=== PATIENT | male | born 1990 | race Caucasian/White ===

== ENCOUNTER 2019-06-09 10:51 | Emergency (ER) | payer OTHER ==
[2019-06-09 11:00] VITALS: BP 139/89
--- NOTE | 2019-06-09 11:03 | ED Physician Documentation ---
History of Present Illness - Stated complaint Stated Complaint: GLF - Chief complaint Chief Complaint: Trauma Ext - History obtained from History obtained from: Patient - History of Present Illness Timing: Prior to arrival - Additonal information Additional information: Patient is a previously healthy 28-year-old male presenting with right knee and proximal lower leg discomfort after falling approximately 6 feet from a ladder that slipped. Patient reports that he fell directly onto the ladder. Patient denies striking of head, loss of consciousness, headache, neck pain, back pain, abdominal pain or other complaints. Patient does note that he fell accidentally in the shower last night onto the right leg without significant injury. Patient does report swelling to the proximal lateral right tib-fib area, as well as pain with bearing weight. Patient denies significant decrease in range of motion, sensation, strength otherwise. No other improving or worsening factors noted. Review of Systems Cardiac: denies: Chest pain / pressure Respiratory: denies: Dyspnea GI: denies: Abdominal Pain, Nausea, Vomiting, Diarrhea : denies: Dysuria Skin: denies: Abrasion (s) Musculoskeletal: reports: Extremity pain, Joint pain, Extremity swelling, Pain with weight bearing. denies: Neck pain, Back pain Neurologic: denies: Focal weakness, Numbness PD PAST MEDICAL HISTORY - Past Medical History Past Medical History: No - Past Surgical History Past Surgical History: No - Allergies Allergies/Adverse Reactions: Allergies Allergy/AdvReac Type Severity Reaction Status Date / Time Sulfa (Sulfonamide AdvReac Unknown Verified 06/09/19 10:57 Antibiotics) - Social History Does the pt smoke?: No Smoking Status: Never smoker PD ED PE NORMAL - Vitals Vital signs reviewed: Yes - General General: Alert and oriented X 3, No acute distress, Well developed/nourished - HEENT HEENT: Atraumatic, Moist mucous membranes - Neck Neck: No bony TTP - Cardiac Cardiac: RRR, No murmur, Strong equal pulses - Respiratory Respiratory: No respiratory distress, Clear bilaterally - Abdomen Abdomen: Normal bowel sounds, Soft, Non tender, Non distended - Back Back: No spinal TTP - Derm Derm: Normal color, Warm and dry, Other - Extremities Extremities: No deformity, Other (Appreciable swelling to right lateral proximal calf with overlying tenderness to palpation. No distinctive right knee discomfort, laxity, or decrease in range of motion. Remainder of right lower extremity is otherwise relatively unremarkable.). No: No tenderness to palpate, No edema - Neuro Neuro: Alert and oriented X 3, No motor deficit, No sensory deficit - Psych Psych: Normal mood, Normal affect Results - Vitals Vitals: Vital Signs - 24 hr 06/09/19 10:54 Temperature 36.0 C L Heart Rate 86 Respiratory 19 Rate Blood Pressure 139/89 H O2 Saturation 98 Oxygen O2 Source Room air PD MEDICAL DECISION MAKING - ED course Complexity details: reviewed results, re-evaluated patient, considered differential, d/w patient ED course: Presenting with likely contusion to right lower extremity. Did not find evidence to indicate internal knee injury such as meniscus or ligamentous injury, although considered. Obtained plain films which did not find evidence of dislocation or fracture, but incidental finding of osteochondroma, which was relayed to patient. At this time, do not feel patient requires further work-up or imaging. Discussed supportive cares, return precautions, and appropriate follow-up. Patient voiced understanding and is comfortable with discharge plan. Departure - Departure Disposition: 01 Home, Self Care Clinical Impression: Injury of lower leg Qualifiers: Encounter type: initial encounter Laterality: right Qualified Code(s): S89.91XA - Unspecified injury of right lower leg, initial encounter Condition: Good Instructions: ED Contusion Lower Ext Follow-Up: your,doctor [Other] - Within 3 Days Comments: Recommend supportive cares including elevation, ice application, ibuprofen/Tylenol as needed. Follow-up with primary care physician in next 2 to 3 days and return to ED sooner if expands worsening symptoms or have other concerns.
--- NOTE | 2019-06-09 12:15 | XRAY Report ---
Reason: fall from ladder with pain and swelling Procedure Date: 06/09/2019 Accession Number: [id number] / [id number] Procedure: XR - Tib/Fib RT CPT Code: FULL RESULT: EXAM: RIGHT TIBIA/FIBULA RADIOGRAPHY EXAM DATE: 06/09/2019 12:05 PM. CLINICAL HISTORY: Fall from ladder with pain and swelling. COMPARISON: None. TECHNIQUE: 2 views. FINDINGS: Bones: No acute fracture. There is a proximal medial right tibial exophytic lesion measuring 1.9 cm consistent with an osteochondroma. Joints: The visualized knee and ankle joints are normal. No effusions. Soft Tissues: No radiopaque foreign bodies. IMPRESSION: 1. No acute osseous abnormalities. 2. Proximal right tibial osteochondroma. RADIA
--- NOTE | 2019-06-09 12:15 | XRAY Report ---
Reason: fall from ladder with pain and swelling Procedure Date: 06/09/2019 Accession Number: [id number] / [id number] Procedure: XR - Knee 3 View RT CPT Code: FULL RESULT: EXAM: RIGHT KNEE RADIOGRAPHY EXAM DATE: 06/09/2019 12:04 PM. CLINICAL HISTORY: Fall from ladder with pain and swelling. COMPARISON: None. TECHNIQUE: 3 views. FINDINGS: Bones: No acute fracture. Proximal medial right tibial osteochondroma present measuring 1.9 cm. Joints: Normal alignment. Small right knee effusion. No dislocation. Soft Tissues: No radiopaque foreign bodies. IMPRESSION: 1. No acute osseous abnormalities. Normal alignment. 2. Proximal right tibial osteochondroma. RADIA
== END 2019-06-09 12:52 | disposition home or self-care (01) ==
LOC: ED 10:51
DX: S89.91XA Unspecified injury of right lower leg, initial encounter (principal); W11.XXXA Fall on and from ladder, initial encounter; D16.21 Benign neoplasm of long bones of right lower limb
CPT/HCPCS: 99282; 99284

== ENCOUNTER 2021-03-05 13:44 | Emergency (ER) | payer OTHER ==
[2021-03-05] MEDS ORDERED: PROPARACAINE 0.5% OPHTH DROPS 15 ML LEFTEYE STA (13:52)
[2021-03-05 13:53] VITALS: BP 160/76
--- NOTE | 2021-03-05 14:10 | ED Physician Documentation ---
PD HPI OPHTHO - Stated complaint Stated Complaint: LT EYE PX - Chief complaint Chief Complaint: Heent - History obtained from History obtained from: Patient - Additional information Additional information: Patient comes emergency department chief complaint of feeling like something is in his eye. 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 When he was done, he suddenly noticed that he had a feeling of something being in his eye and quite a bit of irritation. The patient states that he tried to walk using some eyewash that they had on the worksite and that this did not seem to help. He tried some other drops and continued to have increasing burning and stinging in his eye. Patient does not use contact lenses. He does not use any corrective lenses of any kind. He states that he has not been ill with anything recently. He feels the pain around the area of his lower lid. No visual changes. No other complaints at this time. Review of Systems Ten Systems: 10 systems reviewed and negative Constitutional: reports: Reviewed and negative Eyes: reports: Photophobia, Irritation. denies: Decreased vision Ears: reports: Reviewed and negative Nose: reports: Reviewed and negative Throat: reports: Reviewed and negative Cardiac: reports: Reviewed and negative Respiratory: reports: Reviewed and negative GI: reports: Reviewed and negative : reports: Reviewed and negative Skin: reports: Reviewed and negative Musculoskeletal: reports: Reviewed and negative Neurologic: reports: Reviewed and negative Psychiatric: reports: Reviewed and negative Endocrine: reports: Reviewed and negative Immunocompromised: reports: Reviewed and negative PD PAST MEDICAL HISTORY - Past Medical History Past Medical History: No - Past Surgical History Past Surgical History: No - Allergies Allergies/Adverse Reactions: Allergies Allergy/AdvReac Type Severity Reaction Status Date / Time Sulfa (Sulfonamide AdvReac Unknown Verified 03/05/21 13:46 Antibiotics) - Social History Does the pt smoke?: No Smoking Status: Never smoker Does the pt drink ETOH?: No Does the pt have substance abuse?: No - Immunizations Immunizations are current?: Yes - POLST Patient has POLST: No PD ED PE NORMAL - Vitals Vital signs reviewed: Yes - General General: Alert and oriented X 3, No acute distress, Well developed/nourished - HEENT HEENT: Atraumatic, PERRL, EOMI, Moist mucous membranes, Other (Mild conjunctival injection. No uptake with fluorescein exam. Tiny wooden foreign body noted under upper eyelid.) - Neck Neck: Supple, no meningeal sign - Cardiac Cardiac: RRR, No murmur - Respiratory Respiratory: Clear bilaterally - Abdomen Abdomen: Normal bowel sounds, Soft, Non tender, Non distended - Derm Derm: Warm and dry - Extremities Extremities: No deformity - Neuro Neuro: Alert and oriented X 3 - Psych Psych: Normal mood, Normal affect Results - Vitals Vitals: Vital Signs - 24 hr 03/05/21 13:46 Temperature 36.5 C Heart Rate 90 Respiratory 16 Rate Blood Pressure 160/76 H O2 Saturation 98 Oxygen O2 Source Room air PD MEDICAL DECISION MAKING - ED course Complexity details: considered differential, d/w patient ED course: Wooden foreign body was removed from patient's eyelid with a moistened cotton tip applicator. This was following proparacaine administration, which resulted in great relief as reported by the patient. The remainder of patient's eye exam is unremarkable. I have advised him to use ibuprofen and Tylenol for any further irritation he may have. The patient does not have a corneal abrasion and the foreign body has been removed, and I expect the patient will have continued relief. We discussed indications for follow-up and the usual indications for return. Departure - Departure Disposition: 01 Home, Self Care Clinical Impression: Foreign body in eye Qualifiers: Encounter type: initial encounter Laterality: left Qualified Code(s): T15.92XA - Foreign body on external eye, part unspecified, left eye, initial encounter Condition: Stable Instructions: ED Eye Particle Conjunctiva FB Rslv Comments: A wooden foreign body has been removed from your eye today. This was a tiny wooden particle that was stuck to the inside of your upper eyelid. Examination with dye and magnification does not reveal any scratches on the surface of your eye. Please do not use any contact lenses for any reason until your eye is feeling completely better. If you develop worsening redness or discharge that looks like pus, then you should have your eye rechecked. Otherwise, you may return to normal work duties and carry on as usual. You may use ibuprofen and/or Tylenol for any eye discomfort you may have.
[2021-03-05] MEDS ORDERED: IBUPROFEN 600 MG TABLET PO STA (14:14)
== END 2021-03-05 14:18 | disposition home or self-care (01) ==
LOC: ED 13:44
DX: T15.92XA Foreign body on external eye, part unspecified, left eye, initial encounter (principal); W31.2XXA Contact with powered woodworking and forming machines, initial encounter; Y93.H3 Activity, building and construction; Y92.59 Other trade areas as the place of occurrence of the external cause; Y99.0 Civilian activity done for income or pay
CPT/HCPCS: 65205; 99282; 99284; A9270; J3490